=== PATIENT | female | born 1955 | race Hispanic/Latino ===

== ENCOUNTER 2017-06-07 22:07 | Emergency (ER) | payer SELFPAY ==
[2017-06-07 23:03] LABS: Absolute Lymphocytes (CBC) 1.3 K/uL (0.7-4.9); Absolute Monocytes 0.4 K/uL (0.1-1.3); Absolute Neutrophil 3.7 K/uL (1.8-8.0); Basophils % 0.4 % (0-1.3); Eosinophils % 0.5 % (0-4.4); Hematocrit 36.3 % (36.0-45.0); Lymphocytes % 23.4 % (15.3-44.8); MCH 30.1 pg (27.0-35.0); MCV 89.4 fL (80-100); MPV 9.5 fL (7.6-11.3); Monocytes % 6.5 % (3.3-12.3); RBC Red Blood Cell Count 4.06 M/uL (3.86-4.86)
[2017-06-07] MEDS ORDERED: NA CHLORIDE 0.9% 1,000 ML ONE (23:08)
[2017-06-07 23:16] LABS: Protime INR 1.03
[2017-06-07 23:21] LABS: Bicarbonate 29 mEq/L (21-31); Glucose Level 128 mg/dL (65-120); Potassium 3.4 mEq/L (3.6-5.0); Sodium Level 141 mEq/L (135-145)
[2017-06-07 23:27] LABS: ALT/SGPT 24 IU/L (10-60); AST/SGOT 35 IU/L (10-42); Albumin 4.1 g/dL (3.2-5.5); Alkaline Phosphatase 74 IU/L (42-121); BUN Blood Urea Nitrogen 14 mg/dL (6-20); Bilirubin Direct 0.1 mg/dL (0-0.2); Bilirubin Total 0.4 mg/dL (0.3-1.2); Creatine Phosphokinase 70 IU/L (22-269); Magnesium 1.8 mg/dL (1.8-2.5); Protein, Total 6.7 g/dL (6.0-8.3)
[2017-06-07 23:30] LABS: CKMB Creatine Kinase MB 2.7 ng/ml (0.3-4.0)
[2017-06-07 23:37] LABS: Urine Blood NEGATIVE (NEG); Urine Glucose NEGATIVE (NEG); Urine Protein TRACE (NEG); Urine pH 7.5 (5.0-7.0)
[2017-06-07 23:48] LABS: Urine Amorphous Sediment 3+ /HPF (NONE SEEN); Urine Bacteria 20-50 /HPF (<20); Urine Culture Reflex Order NOT NEEDED; Urine RBC NONE SEEN /HPF (NONE SEEN)
--- NOTE | 2017-06-08 00:19 | ER ---
Nurse's Notes [facility] Name: Eloisa Dillon Age: 61 yrs Sex: Female : 1955 Arrival Date: 06/07/2017 Time: 22:09 Bed 27 Private MD: Diagnosis: Seizure. Urinary tract infection Presentation: 06/07 22:10 Presenting complaint: EMS states: Pt. comes from home by EMS. Per family pt. was rk2 sitting on the couch when pt. slid onto floor and was unconscious. EMS reported as seizure. No clonic/tonic type movement reported by family. Per EMS pt. was confused upon their arrival; however, mental status improved while in route to hospital. Pt. has hx of seizures, last one being 3 years ago. Also hx of brain tumor that was removed x 10 years ago. Pt's response to questions is normally delayed along with facial droop 2nd to brain tumor. Pt. is persian speaking only. C/O of CP when asked. 22:10 Transition of care: patient was not received from another setting of care. Onset of rk2 symptoms was June 07, 2017. Care prior to arrival: IV initiated. 20 GA, in the right antecubital area, Glucose check: 95. 22:10 Method Of Arrival: EMS: [facility] rk2 22:10 Acuity: GUERO 3 rk2 Triage Assessment: 22:20 General: Appears in no apparent distress. Behavior is calm, cooperative. Pain: rk2 Complains of pain in chest. Historical: - Allergies: 22:20 No Known Allergies; rk2 - Home Meds: 22:20 None [Active]; rk2 - PMHx: 22:20 Seizures; brain tumor; rk2 - Immunization history:: Pneumococcal vaccine status is unknown, Flu vaccine status is unknown. - Social history:: Smoking status: unknown. Screenin:37 Abuse screen: Denies threats or abuse. Nutritional screening: No deficits noted. rk2 Tuberculosis screening: No symptoms or risk factors identified. Fall Risk Secondary diagnosis (15 points) IV access (20 points). Mental Status- Overestimates/Forgets Limitations (15 pts.). Assessment: 22:38 General: Appears in no apparent distress. well developed, well nourished, Behavior is rk2 calm, cooperative. Pain: Complains of pain in chest. Neuro: Level of Consciousness is alert, obeys commands, Oriented to person, place, time. Cardiovascular: Rhythm is sinus rhythm. Respiratory: Airway is patent Respiratory effort is even, unlabored, Respiratory pattern is regular, symmetrical. EENT: blood on mouth. Derm: Skin is pink, warm \T\ dry. 22:38 Reassessment: Per family \T\ bedside... pt. is at her baseline. Able to answer questions rk2 appropriately. Pt. is alert. 23:30 Reassessment: Pt. resting in room, iv fluids infusing... Family \T\ bedside. Pt. appears rk2 to be in no obvious distress \T\ this time. No needs voiced. Waiting results. 06/08 01:00 Reassessment: Reviewed DC instructions with pt. and family... Iv removed. Pt. able to rk2 ambulate out on her own with family \T\ bedside. Vital Signs: 06/07 22:21 BP 152 / 82; Pulse 70; Resp 17; Temp 98.5; Pulse Ox 100% on R/A; rk2 23:00 BP 135 / 79; Pulse 76; Resp 16; Pulse Ox 99% on R/A; rk2 06/08 00:51 BP 148 / 83; Pulse 74; Resp 16; Pulse Ox 99% ; rk2 ED Course: 06/07 22:09 Patient arrived in ED. em1 22:09 Vera Felton, RN is Primary Nurse. rk2 22:10 Arm band placed on left wrist. rk2 22:15 Jw Vaughn MD is Attending Physician. pkl 22:19 Triage completed. rk2 22:37 Patient has correct armband on for positive identification. Bed in low position. Call rk2 light in reach. Side rails up X2. Adult w/ patient. acid purifier on. Pulse ox on. 06/08 00:21 X-ray completed. Portable x-ray completed in exam room. Patient tolerated procedure kw well. 01:03 XRAY Chest (1 view) In Process Unspecified. EDMS 01:03 CT Head Brain wo Cont In Process Unspecified. EDMS 01:08 Urine Microscopic Only Sent. rk2 01:14 No provider procedures requiring assistance completed. IV discontinued. rk2 Administered Medications: 06/07 22:58 Drug: NS 0.9% 1000 ml Route: IV; Rate: 100 ml/hr; Site: right antecubital; rk2 06/08 00:53 Follow up: Response: No adverse reaction; IV Status: Completed infusion rk2 00:53 Drug: K-Lyte Effervescent Tablet 25 mEq Route: PO; rk2 01:07 Follow up: Given \T\ DC rk2 00:53 Drug: Cipro 500 mg Route: PO; rk2 01:07 Follow up: Given \T\ DC rk2 Intake: Outcome: 00:18 Discharge ordered by . iram 01:14 Discharged to home ambulatory. rk2 01:14 Condition: good 01:14 Discharge instructions given to patient, family, Prescriptions given X 1. 01:16 Patient left the ED. rk2 Addendum: 06/11/2017 08:40 Addendum: Culture Results: Positive urine culture. No further action required. Bacteria s s sensitive to prescribed antibiotic. Signatures: Dispatcher [employer] EDMS Jw Vaughn MD MD pkl Martinez, Eric em1 Alesha Arevalo RN RN ss Whitley, Kimberlee kw Kidder, Rhonda, RN RN rk2 Corrections: (The following items were deleted from the chart) 06/07 22:22 22:10 Presenting complaint: EMS states: Pt. comes from home by EMS. Per family pt. was rk2 sitting on the couch when pt. slid onto floor and was unconscious. EMS reported as seizure. No clonic/tonic type movement reported by family. Per EMS pt. was confused upon their arrival; however, mental status improved while in route to hospital. Pt. has hx of seizures, last one being 3 years ago. Also hx of brain tumor that was removed x 10 years ago. Pt's response to questions is normally delayed along with facial droop 2nd to brain tumor. rk2 22:41 22:38 Derm: Skin is pink, warm \T\ dry. rk2 rk2
--- NOTE | 2017-06-08 00:19 | EDPHYS ---
Physician Documentation [facility] Name: Eloisa Dillon Age: 61 yrs Sex: Female : 1955 Arrival Date: 06/07/2017 Time: 22:09 Bed 27 Private MD: ED Physician Jw Vaughn HPI: 06/07 22:48 This 61 yrs old Female presents to ER via EMS with unknown complaint. pkl 22:48 The patient presents after having a single isolated seizure. Character of seizure(s): pkl Loss of consciousness: the patient experienced loss of consciousness. Seizure onset: just prior to arrival. Context: the seizure(s) was witnessed, by family, daughter. Associated injury: The patient did not suffer any apparent associated injury. Historical: - Allergies: 22:20 No Known Allergies; rk2 - Home Meds: 22:20 None [Active]; rk2 - PMHx: 22:20 Seizures; brain tumor; rk2 - Immunization history:: Pneumococcal vaccine status is unknown, Flu vaccine status is unknown. - Social history:: Smoking status: unknown. ROS: 22:48 Eyes: Negative for injury, pain, redness, and discharge, ENT: Negative for injury, pkl pain, and discharge, Neck: Negative for injury, pain, and swelling. 22:48 Cardiovascular: Positive for chest pain. 22:48 Respiratory: Negative for cough, shortness of breath. 22:48 Abdomen/GI: Negative for abdominal pain, nausea, vomiting, and diarrhea. 22:48 Back: Negative for acute changes. 22:48 : Negative for urinary symptoms. 22:48 MS/extremity: Negative for acute changes. 22:48 Skin: Negative for rash. 22:48 Neuro: Positive for seizure activity. Exam: 22:48 Head/Face: Normocephalic, atraumatic. Eyes: Pupils equal round and reactive to light, pkl extra-ocular motions intact. Lids and lashes normal. Conjunctiva and sclera are non-icteric and not injected. Cornea within normal limits. Periorbital areas with no swelling, redness, or edema. ENT: Nares patent. No nasal discharge, no septal abnormalities noted. Tympanic membranes are normal and external auditory canals are clear. Oropharynx with no redness, swelling, or masses, exudates, or evidence of obstruction, uvula midline. Mucous membranes moist. Neck: Trachea midline, no thyromegaly or masses palpated, and no cervical lymphadenopathy. Supple, full range of motion without nuchal rigidity, or vertebral point tenderness. No Meningismus. Chest/axilla: Normal chest wall appearance and motion. Nontender with no deformity. No lesions are appreciated. Cardiovascular: Regular rate and rhythm with a normal S1 and S2. No gallops, murmurs, or rubs. Normal PMI, no JVD. No pulse deficits. Respiratory: Lungs have equal breath sounds bilaterally, clear to auscultation and percussion. No rales, rhonchi or wheezes noted. No increased work of breathing, no retractions or nasal flaring. Abdomen/GI: Soft, non-tender, with normal bowel sounds. No distension or tympany. No guarding or rebound. No evidence of tenderness throughout. Back: No spinal tenderness. No costovertebral tenderness. Full range of motion. Skin: Warm, dry with normal turgor. Normal color with no rashes, no lesions, and no evidence of cellulitis. MS/ Extremity: Pulses equal, no cyanosis. Neurovascular intact. Full, normal range of motion. Neuro: Awake and alert, GCS 15, oriented to person, place, time, and situation. Cranial nerves II-XII grossly intact. Motor strength 5/5 in all extremities. Sensory grossly intact. Cerebellar exam normal. Normal gait. Vital Signs: 22:21 BP 152 / 82; Pulse 70; Resp 17; Temp 98.5; Pulse Ox 100% on R/A; rk2 23:00 BP 135 / 79; Pulse 76; Resp 16; Pulse Ox 99% on R/A; rk2 06/08 00:51 BP 148 / 83; Pulse 74; Resp 16; Pulse Ox 99% ; rk2 MDM: 06/07 22:15 Patient medically screened. pkl 06/08 00:17 Data reviewed: vital signs, nurses notes, lab test result(s), radiologic studies, CT pkl scan. 06/07 22:45 Order name: Basic Metabolic Panel pkl 06/07 22:45 Order name: BNP pkl 06/07 22:45 Order name: CBC with Diff l 06/07 22:45 Order name: Ckmb pkl 06/07 22:45 Order name: CPK pkl 06/07 22:45 Order name: LFT's pkl 06/07 22:45 Order name: Magnesium pkl 06/07 22:45 Order name: PT-INR pkl 06/07 22:45 Order name: Ptt, Activated pkl 06/07 22:45 Order name: Troponin (emerg Dept Use Only) pk 06/07 23:18 Order name: CBC with Automated Diff; Complete Time: 00:13 EDMS 06/07 23:18 Order name: Protime (+INR); Complete Time: 00:13 EDMS 06/07 23:18 Order name: PTT, Activated Partial Thromb; Complete Time: 00:13 EDMS 06/07 23:21 Order name: Basic Metabolic Panel; Complete Time: 00:13 EDMS 06/07 22:45 Order name: XRAY Chest (1 view) [facility] 06/07 22:46 Order name: CT Head Brain wo Cont pk 06/07 23:23 Order name: Urine Microscopic Only rk2 06/07 23:23 Order name: Urine Culture rk2 06/07 23:27 Order name: Liver (Hepatic) Function; Complete Time: 00:13 EDMS 06/07 23:27 Order name: Creatine Phosphokinase; Complete Time: 00:13 EDMS 06/07 23:27 Order name: Magnesium; Complete Time: 00:13 EDMS 06/07 23:27 Order name: Troponin (Emerg Dept Use Only); Complete Time: 00:13 EDMS 06/07 23:28 Order name: Urine Dipstick--Ancillary (enter results) em1 06/07 23:29 Order name: BNP B-Type Natriuretic Peptide; Complete Time: 00:13 EDMS 06/07 23:30 Order name: CKMB Creatine Kinase MB; Complete Time: 00:13 EDMS 06/07 23:37 Order name: Urine Dipstick-Ancillary; Complete Time: 00:13 EDMS 06/07 23:48 Order name: Urine Microscopic Only; Complete Time: 00:13 EDMS 06/07 22:45 Order name: EKG; Complete Time: 22:46 [facility] 06/07 22:45 Order name: Cardiac monitoring; Complete Time: 22:47 [facility] 06/07 22:45 Order name: EKG - Nurse/Tech; Complete Time: 01:08 pk 06/07 22:45 Order name: IV Saline Lock; Complete Time: 22:59 pk 06/07 22:45 Order name: Labs collected and sent; Complete Time: 22:59 pkl 06/07 22:45 Order name: O2 Per Protocol; Complete Time: 22:47 pkl 06/07 22:45 Order name: O2 Sat Monitoring; Complete Time: 22:47 pkl 06/07 22:45 Order name: Urine Dipstick-Ancillary (obtain specimen); Complete Time: 23:23 pkl Administered Medications: 06/07 22:58 Drug: NS 0.9% 1000 ml Route: IV; Rate: 100 ml/hr; Site: right antecubital; rk2 06/08 00:53 Follow up: Response: No adverse reaction; IV Status: Completed infusion rk2 00:53 Drug: K-Lyte Effervescent Tablet 25 mEq Route: PO; rk2 :07 Follow up: Given \T\ DC rk2 00:53 Drug: Cipro 500 mg Route: PO; rk2 01:07 Follow up: Given \T\ DC rk2 Disposition: 06/08/17 00:18 Discharged to Home. Impression: Seizure. Urinary tract infection. - Condition is Stable. - Prescriptions for Cipro 500 mg Oral Tablet - take 1 tablet by ORAL route every 12 hours for 5 days; 10 tablet. - Medication Reconciliation Form, Thank You Letter, Antibiotic Education, Prescription Opioid Use form. - Follow up: Private Physician; When: 2 - 3 days; Reason: Re-evaluation by your physician. - Problem is new. - Symptoms have improved. Signatures: Dispatcher [employer] Jw Daley MD MD pkVera Pruitt RN RN rk2
[2017-06-08] MEDS ORDERED: POTASSIUM 25 MEQ EFFERV TAB ONE (01:09)
[2017-06-08] MEDS ORDERED: CIPROFLOXACIN HCL 500 MG TAB ONE (01:09)
[2017-06-08 01:21] VITALS: BP 152/82; TEMP 98.5; O2SAT 100
--- NOTE | 2017-06-08 08:15 | RAD REPORT ---
EXAM DESCRIPTION: RAD - Chest Single View - 06/08/2017 12:23 am CLINICAL HISTORY: Chest pain, seizure history COMPARISON: None. TECHNIQUE: AP portable chest image was obtained 2321 hours . FINDINGS: Linear stranding in the left base is favored to be atelectasis rather than pneumonia. No c onsolidation, mass or significant failure finding. Interstitial markings are mildly prominent believe d be baseline. Heart and vasculature are normal. No measurable pleural effusion and no pneumothorax. No gross bony abnormality seen. No acute aortic findings suspected. IMPRESSION: Left base stranding believed to be atelectasis rather than infiltrate. Patient appears to have a mild chronic interstitial lung pattern.
--- NOTE | 2017-06-08 08:19 | RAD REPORT ---
EXAM DESCRIPTION: CT - Head Brain Wo Cont - 06/08/2017 5:59 am CLINICAL HISTORY: Seizure, altered mental status, history of brain tumor removal 10 years earlier A preliminary written report was provided at the time of the study, and the report was reviewed prio r to final dictation. COMPARISON: None. TECHNIQUE: Axial 5 mm thick images of the head were obtained without IV contrast. All CT scans are performed using dose optimization technique as appropriate and may include automated exposure control or mA/KV adjustment according to patient size. FINDINGS: No intracranial hemorrhage, mass, edema or shift of mid-line structures. No acute infarcti on changes seen. No abnormal extra-axial fluid collections. Ventricles are normal. Postsurgical amin es are present along the right-side posterior fossa extending into the mastoid air cells. No active p rocess seen. There is some volume loss change evident in the right cerebellum. Again, active process is not suspected though surgical changes are potential seizure foci. Mastoid air cells and visualized portions of the paranasal sinuses are clear. No acute bony findings. IMPRESSION: Postsurgical changes as detailed in the right-side posterior fossa. No acute intracrania l finding seen.
--- NOTE | 2017-06-08 11:10 | EKG ---
Test Date: 2017-06-07 Test Time: 23:36:30 Gold Assayer: [employer] MEASUREMENT RESULTS: Intervals: Rate: 68 IL: 178 QRSD: 76 QT: 398 QTc: 423 [facility]: P: 72 IL: 178 QRS: 19 T: 61 INTERPRETIVE STATEMENTS: Normal sinus rhythm Nonspecific T wave abnormality Abnormal ECG No previous ECG available for comparison Electronically Signed On 06-08-17 11:09:45 CDT by Gene Galvan
== END 2017-06-08 01:16 | disposition home or self-care (01) ==
LOC: MERGE 22:07 → ER 22:07
DX: N39.0 Urinary tract infection, site not specified (principal); D49.6 Neoplasm of unspecified behavior of brain
CPT/HCPCS: 36415; 70450; 71045; 80048; 80076; 81003; 81015; 82550; 82553; 83735; 83880; 84484; 85025; 85610; 85730; 87077; 87086; 87088; 87186; 93005; 96360; 96361; 99284; J7030